=== PATIENT | female | born 1945 | race Caucasian/White ===

== ENCOUNTER 2019-10-10 10:16 | Outpatient (CLI) | payer MEDICARE, SELFPAY ==
[2019-10-10 12:06] LABS: Hemoglobin A1C 5.6 % (<5.7)
[2019-10-10 12:44] LABS: Thyroid Stimulating Hormone 0.446 uIU/mL (0.465-4.680)
== END 2019-10-10 10:17 | disposition home or self-care (01) ==
LOC: ANHLAB 10:17
PROVIDERS: PCP Family Medicine; Visit Provider Internal Medicine Hematology & Oncology
DX: R73.01 Impaired fasting glucose (principal); R53.83 Other fatigue; E03.9 Hypothyroidism, unspecified
CPT/HCPCS: 36415; 83036; 84443

== ENCOUNTER 2019-12-04 01:55 | Outpatient (CLI) | payer MEDICARE, SELFPAY ==
[2019-12-04 18:20] LABS: SARS-CoV-2 RNA PCR Negative
== END 2019-12-04 01:56 | disposition home or self-care (01) ==
LOC: ANHCOVIDDT 01:55
PROVIDERS: PCP Family Medicine; Visit Provider Internal Medicine Gastroenterology
DX: Z01.812 Encounter for preprocedural laboratory examination (principal); Z11.59 Encounter for screening for other viral diseases
CPT/HCPCS: 87635; C9803; U0003

== ENCOUNTER 2019-12-06 02:13 | Day surgery (SDC) | payer MEDICARE, SELFPAY ==
[2019-11-28 14:13] VITALS: BMI 42.5
[2019-12-06 08:28] VITALS: BP 104/62; PULSE 87; RESP 20; TEMP 36.3; O2SAT 97
[2019-12-06] MEDS: LACTATED RINGERS 1,000 ML 150 ML IV CONT (08:46)
--- NOTE | 2019-12-06 09:16 | PM.HPGS ---
History of Present Illness History of Present Illness Consent: Risks, benefits, and alternatives have been discussed and questions answered. Patient agrees to proceed with procedure. Chief complaint: neoplasm Screening Narrative: Marti Leal is a 74 year old female with colon cancer 2015 s/p surgery Review of Systems Constitutional: Constitutional: Denies headache(s) and Denies weakness Eyes: Eyes: Denies blurry vision ENT: Reports Normal hearing present, Denies headache(s) and Denies neck pain Cardiovascular: Cardiovascular: Denies chest pain and Denies dyspnea Respiratory: Respiratory: Denies dyspnea Gastrointestinal: Gastrointestinal: Reports no additional gastrointestinal complaints Genitourinary: Genitourinary: Denies dysuria Musculoskeletal: Musculoskeletal: Denies neck pain Integumentary/Breasts: Skin/Breast: Denies dry skin Neurologic: Reports Normal hearing present, Denies headache(s) and Denies weakness Psychiatric: Psychiatric: Denies anxiety Endocrine: Endocrine: Denies change in body appearance Hematologic/Lymphatic: Hematologic/Lymphatic: Denies easy bleeding Allergic/Immunologic: Allergic/Immunologic: Denies urticaria [facility], LAT[facility] Social History Social History (Updated 11/01/19 @ 14:33 by Codie Joya) Smoking packs per day: 1 Smoking cigarettes per day: 20.0 Years smoked: 20 Smoking pack-years: 20.00 Smoking status: Former smoker Tobacco type: cigarettes Second hand tobacco smoke exposure: No Smoking end date: 04/26/94 Alcohol intake: never Substance use: never Substance use type: does not use Gender identity (if verbalized by the patient): Female Meds Home Medications and Allergies Home Medications Medication Instructions Recorded Confirmed Type anastrozole 1 mg PO DAILY 02/14/19 11/28/19 History calcium carbonate-vitamin D3 1 tablet PO BID 02/14/19 11/28/19 History cholecalciferol (vitamin D3) 1,000 unit PO DAILY 02/14/19 11/28/19 History denosumab 60 mg SUBCUT [id number] 02/14/19 11/28/19 History omega-3 fatty acids 1,000 mg PO DAILY 02/14/19 11/28/19 History topiramate 25 mg tablet 25 mg PO DAILY 03/27/19 11/28/19 History escitalopram oxalate 10 mg tablet 10 mg PO DAILY #90 tablet 03/28/19 11/28/19 Rx ascorbic acid (vitamin C) 500 mg PO DAILY 04/11/19 11/28/19 History furosemide 40 mg tablet See Rx Instructions .ROUTE 11/15/19 11/28/19 Rx .COMPLEX #90 tablet potassium chloride 10 meq PO DAILY 11/28/19 11/28/19 History spironolactone 50 mg PO DAILY 11/28/19 11/28/19 History Allergies Allergy/AdvReac Type Severity Reaction Status Date / Time zinc Allergy Mild skin rash Verified 12/06/19 08:24 Vital Signs Vital Signs - 24 hr 12/06/19 08:28 Temperature 97.4 F L Pulse Rate 87 Respiratory Rate 20 Blood Pressure 104/62 Pulse Oximetry 97 Exam Const: General: comfortable and no acute distress HENMT: General nose exam: Normal nares present Eyes: General: appearance normal, both eyes and all related structures Neck: Neck: no JVD Resp: Auscultation: clear to auscultation bilaterally Cardio: Rate: regular rate Rhythm: regular rhythm GI: Inspection: non-distended GI Palp: Yes Soft to palpation Skin: General skin exam: normal color Neuro: General: gait normal Speech: normal speech Extrem: General: normal to inspection Psych: Mental Status: mental status grossly normal Assessment and Plan Assessment and plan (1) Malignant neoplasm of colon: Code(s): C18.9 - Malignant neoplasm of colon, unspecified Status: Acute Assessment and Plan: she is due to have another colonoscopy (2) S/P colon resection: Code(s): Z90.49 - Acquired absence of other specified parts of digestive tract Status: Acute
--- NOTE | 2019-12-06 09:19 | WPDANESEPPF ---
Anes - Initial Pre Proc Eval Procedure: Operation Date: 12/06/19 09:15 Proposed Procedures p Screening Colonoscopy - Semaj You MD Date/Time: 12/06/19 09:19 Surgeon: Semaj You MD Pre Op Diagnosis: neoplasm Screening Patient Data Age: 74 Gender: F Height: 5 ft 5 in Weight: 116 kg Last Vital Signs Temp 97.4 F L 12/06/19 08:28 Pulse 87 12/06/19 08:28 Resp 20 12/06/19 08:28 BP 104/62 12/06/19 08:28 Pulse Ox 97 12/06/19 08:28 Allergies Allergy/AdvReac Type Severity Reaction Status Date / Time zinc Allergy Mild skin rash Verified 12/06/19 08:24 Home Medications Medication Instructions Recorded Confirmed Type anastrozole 1 mg PO DAILY 02/14/19 11/28/19 History calcium carbonate-vitamin D3 1 tablet PO BID 02/14/19 11/28/19 History cholecalciferol (vitamin D3) 1,000 unit PO DAILY 02/14/19 11/28/19 History denosumab 60 mg SUBCUT [id number] 02/14/19 11/28/19 History omega-3 fatty acids 1,000 mg PO DAILY 02/14/19 11/28/19 History topiramate 25 mg tablet 25 mg PO DAILY 03/27/19 11/28/19 History escitalopram oxalate 10 mg tablet 10 mg PO DAILY #90 tablet 03/28/19 11/28/19 Rx ascorbic acid (vitamin C) 500 mg PO DAILY 04/11/19 11/28/19 History furosemide 40 mg tablet See Rx Instructions .ROUTE 11/15/19 11/28/19 Rx .COMPLEX #90 tablet potassium chloride 10 meq PO DAILY 11/28/19 11/28/19 History spironolactone 50 mg PO DAILY 11/28/19 11/28/19 History Patient hx anesthesia problems: none Family hx anesthesia problems: none PMFSH Past Medical History Medical History (Updated 12/06/19 @ 09:19 by Teofilo Almazan MD) Diastolic dysfunction without heart failure Essential (primary) hypertension History of colon cancer History of uterine cancer Hx of malignant neoplasm of female breast Surgical History Surgical History History of TMJ disorder Status post hysterectomy with oophorectomy Status post Olimpia fundoplication Social History Social History (Updated 11/01/19 @ 14:33 by Codie Joya) Smoking packs per day: 1 Smoking cigarettes per day: 20.0 Years smoked: 20 Smoking pack-years: 20.00 Smoking status: Former smoker Tobacco type: cigarettes Second hand tobacco smoke exposure: No Smoking end date: 04/26/94 Alcohol intake: never Substance use: never Substance use type: does not use Gender identity (if verbalized by the patient): Female Anes - Eval Final PreProcedure Day of Procedure 12/06/19 09:19 Patient weight: morbidly obese Heart: regular rate and rhythm Lungs: clear to auscultation Airway: Mallampati scale class III Neurological: alert and oriented Last oral intake: >/= 8 hours ASA classification: IV Emergent: no Anesthetic plan: proceed Anesthesia type and monitoring: general GIVS and standard monitoring Informed Consent: The patient's anesthetic plan and its attendant risks and benefits were discussed with the patient/family/POA. Questions were solicited and answers provided to the satisfaction of the patient/family/POA.
[2019-12-06 09:48] VITALS: BP 91/44; PULSE 68; RESP 14; O2SAT 98
[2019-12-06 09:58] VITALS: BP 95/45; PULSE 68; RESP 14; O2SAT 98
[2019-12-06 10:08] VITALS: BP 119/58; PULSE 61; RESP 14; O2SAT 98
== END 2019-12-06 10:30 | disposition home or self-care (01) ==
PROVIDERS: PCP Family Medicine; Visit Provider Internal Medicine Gastroenterology
PROC: 0DJD8ZZ Inspection of Lower Intestinal Tract, Via Natural or Artificial Opening Endoscopic (ICD-10-PCS; CPT 45378; principal; 2019-12-06 09:15)
DX: Z12.11 Encounter for screening for malignant neoplasm of colon (principal); D12.2 Benign neoplasm of ascending colon; K63.5 Polyp of colon; K57.30 Diverticulosis of large intestine without perforation or abscess without bleeding; K64.8 Other hemorrhoids; Z85.038 Personal history of other malignant neoplasm of large intestine; Z98.0 Intestinal bypass and anastomosis status; Z90.49 Acquired absence of other specified parts of digestive tract; I11.9 Hypertensive heart disease without heart failure; Z85.3 Personal history of malignant neoplasm of breast; Z79.811 Long term (current) use of aromatase inhibitors; Z87.891 Personal history of nicotine dependence; E66.01 Morbid (severe) obesity due to excess calories; Z68.41 Body mass index [BMI] 40.0-44.9, adult
CPT/HCPCS: 45380; 88305; J2001; J2704; J7120

== ENCOUNTER 2020-04-09 08:45 | Outpatient (CLI) | payer MEDICARE, SELFPAY ==
--- NOTE | ~2020-04-09 | MM_ITS ---
EXAMINATION: MM screening sofi BI w marlo HISTORY: Screening mammogram, history of left breast cancer TECHNIQUE: Craniocaudal and mediolateral oblique 3-D tomosynthesis images were obtained and synthetic 2-D images were generated. CAD analysis was submitted and interpreted. COMPARISON: 04/06/2019, 04/01/2018, 03/30/2017 BREAST PARENCHYMAL COMPOSITION: There are scattered areas of fibroglandular density. FINDINGS: Stable lumpectomy changes are present in the outer left breast. There is no evidence of diego picious mass, calcification, or architectural distortion to suggest malignancy in either breast. Ther e has been no suspicious interval change. IMPRESSION: 1. No mammographic evidence of malignancy. 2. Recommend routine screening mammography in one year. BI-RADS Category 2: Benign finding(s). Reviewed, dictated and finalized at location A. ROPATHIC PHYSICIAN
== END 2020-04-09 08:46 | disposition home or self-care (01) ==
LOC: ANHIMG 08:48
PROVIDERS: PCP Family Medicine; Visit Provider Internal Medicine Hematology & Oncology
DX: Z12.31 Encounter for screening mammogram for malignant neoplasm of breast (principal)
CPT/HCPCS: 77063; 77067

== ENCOUNTER 2020-04-25 10:41 | Outpatient (CLI) | payer MEDICARE, SELFPAY ==
[2020-04-25 11:43] LABS: Hemoglobin A1C 5.4 % (<5.7)
== END 2020-04-25 10:42 | disposition home or self-care (01) ==
PROVIDERS: PCP Family Medicine; Visit Provider Family Medicine
DX: E11.9 Type 2 diabetes mellitus without complications (principal)
CPT/HCPCS: 36415; 83036

== ENCOUNTER → 2020-08-06 09:42 | Outpatient (CLI) | payer MEDICARE, SELFPAY ==
--- NOTE | ~2020-08-06 | XR_ITS ---
EXAMINATION: XR chest 2V DATE: 08/06/2020 10:00 INDICATION: Cough. TECHNIQUE: Frontal and lateral views of the chest were obtained. COMPARISON: Chest single view 03/09/2016 FINDINGS: A calcified right lung nodule is consistent with old granulomatous disease. No pleural effu michael or pneumothorax with the heart size is normal. There is mild chronic anterior wedging of multipl e thoracic vertebral bodies. IMPRESSION: 1. No acute cardiopulmonary disease. Reviewed, dictated and finalized at location A.
== END ==
PROVIDERS: PCP Family Medicine; Visit Provider Physician Assistant
DX: R05 Cough (principal)
CPT/HCPCS: 71046

== ENCOUNTER 2020-10-25 09:47 | Outpatient (CLI) | payer MEDICARE, SELFPAY ==
[2020-10-25 10:09] LABS: Add Urine Microscopic? YES
[2020-10-25 10:10] LABS: Color Urine Yellow (Yellow)
[2020-10-25 10:11] LABS: Appearance Urine Cloudy (Clear); Glucose Urine UA Negative (Negative); Protein Urine 1+ mg/dL (Negative)
[2020-10-25 10:12] LABS: Bilirubin Urine Negative (Negative); Blood Urine 2+ (Negative); Ketones Urine Negative (Negative); Leukocyte Esterase Ur 2+ LEU/UL (NEGATIVE); Nitrate Urine Negative (Negative); Urobilinogen Urine 0.2 mg/dL (<2.0)
[2020-10-25 10:43] LABS: RBC Urine 21-50 /hpf (0-2)
[2020-10-25 10:44] LABS: Squamous Epithelial Cell Urine Few /hpf (Few)
[2020-10-25 10:46] LABS: Bacteria Urine Trace /hpf
[2020-10-25 11:50] LABS: Cholesterol 180 mg/dL (0-200); HDL Direct 65 mg/dL; Triglycerides 119 mg/dL (<150)
[2020-10-25 11:55] LABS: Hemoglobin A1C 5.6 % (<5.7)
[2020-10-25 12:00] LABS: LDL Cholesterol Direct 77 mg/dL
== END 2020-10-25 09:48 | disposition home or self-care (01) ==
PROVIDERS: PCP Family Medicine; Visit Provider Family Medicine
DX: R53.83 Other fatigue (principal); R73.01 Impaired fasting glucose; I10 Essential (primary) hypertension
CPT/HCPCS: 36415; 80061; 81001; 83036; 84443

== ENCOUNTER 2021-04-14 07:11 | Outpatient (CLI) | payer MEDICARE, SELFPAY ==
--- NOTE | ~2021-04-14 | MM_ITS ---
EXAMINATION: MM screening sofi BI w marlo HISTORY: Screening mammogram, family history of breast cancer in her sister, history of left breast c ancer. TECHNIQUE: Craniocaudal and mediolateral oblique 3-D tomosynthesis images were obtained and synthetic 2-D images were generated. CAD analysis was submitted and interpreted. COMPARISON: 04/09/2020, 04/06/2019, 04/01/2018 BREAST PARENCHYMAL COMPOSITION: There are scattered areas of fibroglandular density. FINDINGS: Scattered benign-appearing calcifications are present. There is no evidence of suspicious m ass, calcification, or architectural distortion to suggest malignancy in either breast. There has bee n no suspicious interval change. IMPRESSION: 1. No mammographic evidence of malignancy. 2. Recommend routine screening mammography in one year. BI-RADS Category 2: Benign finding(s). Reviewed, dictated and finalized at location A. ER CRUSHER OPERATOR
[2021-04-14 15:24] LABS: Hemoglobin A1C 5.5 % (<5.7)
== END 2021-04-14 07:12 | disposition home or self-care (01) ==
PROVIDERS: PCP Family Medicine; Visit Provider Internal Medicine Hematology & Oncology
DX: Z12.31 Encounter for screening mammogram for malignant neoplasm of breast (principal); R73.01 Impaired fasting glucose; I10 Essential (primary) hypertension
CPT/HCPCS: 36415; 77063; 77067; 83036

== ENCOUNTER 2021-11-18 09:27 | Outpatient (CLI) | payer MEDICARE, SELFPAY ==
[2021-11-18 10:07] LABS: Cholesterol 162 mg/dL (0-200); HDL Direct 49 mg/dL; Triglycerides 100 mg/dL (<150)
[2021-11-18 10:18] LABS: LDL Cholesterol Direct 67 mg/dL
[2021-11-18 10:38] LABS: Thyroid Stimulating Hormone 0.484 uIU/mL (0.465-4.680)
[2021-11-18 10:44] LABS: Hemoglobin A1C 5.4 % (<5.7)
== END 2021-11-18 09:28 | disposition home or self-care (01) ==
LOC: ANHLAB 09:28
PROVIDERS: PCP Family Medicine; Visit Provider Family Medicine
DX: R53.83 Other fatigue (principal); R73.01 Impaired fasting glucose; E78.2 Mixed hyperlipidemia
CPT/HCPCS: 36415; 80061; 83036; 84443

== ENCOUNTER 2022-05-11 07:14 | Outpatient (CLI) | payer MEDICARE, SELFPAY ==
--- NOTE | ~2022-05-11 | MM_ITS ---
EXAMINATION: MM screening sofi BI w marlo HISTORY: Screening mammogram, history of left breast cancer TECHNIQUE: Craniocaudal and mediolateral oblique 3-D tomosynthesis images were obtained and synthetic 2-D images were generated. CAD analysis was submitted and interpreted. COMPARISON: 04/14/2021, 04/09/2020, 04/06/2019 BREAST PARENCHYMAL COMPOSITION: There are scattered areas of fibroglandular density. FINDINGS: There are stable lumpectomy changes in the left breast. No suspicious mass, calcification, or architectural distortion are identified in either breast to suggest malignancy. There has been no suspicious interval change. IMPRESSION: 1. No mammographic evidence of malignancy. 2. Recommend routine screening mammography in one year. BI-RADS Category 2: Benign finding(s). Reviewed, dictated and finalized at location A. CONTROLLER
== END 2022-05-11 07:15 | disposition home or self-care (01) ==
LOC: ANHIMG 07:15
PROVIDERS: PCP Family Medicine; Visit Provider Internal Medicine Hematology & Oncology
DX: Z12.31 Encounter for screening mammogram for malignant neoplasm of breast (principal)
CPT/HCPCS: 77063; 77067

== ENCOUNTER 2022-11-10 08:26 | Outpatient (CLI) | payer MEDICARE, SELFPAY ==
[2022-11-10 08:47] LABS: Basophils Percent Auto 0.4 % (0.2-1.2); Eosinophils Absolute Auto 0.2 K/mm3 (0-0.3); Hematocrit 41.7 % (37.0-47.0); Hemoglobin 13.7 g/dL (12.0-15.0); Immature Granulocyte Absolute 0.03 K/mm3 (0.00-0.031); Immature Granulocyte Percent A 0.4 % (0-0.5); Lymphocytes Absolute Auto 1.59 K/mm3 (0.9-3.2); Lymphocytes Percent Auto 23.7 % (18.3-44.2); Mean Corpuscular HGB Conc 32.9 g/dl (32-36); Mean Corpuscular Hemoglobin 30.1 pg (26-34); Mean Corpuscular Volume 91.6 fl (80-100); Mean Platelet Volume 9.4 fl (7.4-10.4); Monocytes Absolute Auto 0.6 K/mm3 (0.1-0.6); Monocytes Percent Auto 9.5 % (2.6-8.5); Neutrophils Absolute Auto 4.2 K/mm3 (1.3-6.7); Platelet Count Result 210 k/mm3 (150-375); Red Blood Count 4.55 M/mm3 (4.2-5.4); Red Cell Distribution Width 13.3 % (11.5-14.5); White Blood Count 6.7 K/mm3 (4.5-10.0)
[2022-11-10 11:04] LABS: Appearance Urine Clear (Clear); Bacteria Urine None Seen /hpf; Bilirubin Urine Negative (Negative); Blood Urine Trace (Negative); Calcium Oxalate Crystals Urine Present /hpf; Color Urine Yellow (Yellow); Glucose Urine UA Negative (Negative); Hyaline Casts Urine Present /lpf; Ketones Urine Negative (Negative); Leukocyte Esterase Ur 1+ LEU/UL (NEGATIVE); Mucus Urine Present /lpf; Need Manual Microscopic Reviewed; Nitrate Urine Negative (Negative); Non Pathogenic Casts 0-2; Protein Urine Negative (Negative); Specific Grav Ur 1.022 (1.001-1.035); Squamous Epithelial Cell Urine None seen /hpf (Few); Urobilinogen Urine 0.2 mg/dL (<2.0); pH Urine 5.5 (5.0-9.0)
[2022-11-10 11:13] LABS: Add Urine Microscopic? YES
[2022-11-10 11:39] LABS: Hemoglobin A1C 5.6 % (<5.7)
[2022-11-10 12:49] LABS: Alanine Aminotransferase 23 U/L (6-35); Albumin Level 3.9 g/dL (3.5-5.1); Alkaline Phosphatase 64 U/L (38-126); Anion Gap 4 mmol/L (8-16); Aspartate Amino Transferase 31 U/L (14-36); Bilirubin,Total 0.5 mg/dL (0.2-1.3); Blood Urea Nitrogen 13 mg/dL (7-17); Calcium 9.4 mg/dL (8.4-10.2); Carbon Dioxide 35 mmol/L (22-30); Chloride 100 mmol/L (98-107); Cholesterol 156 mg/dL (0-200); Estimated Glomerular Filt Rate > 60; Glucose 97 mg/dL (65-110); HDL Direct 48 mg/dL; Sodium 139 mmol/L (137-145); Triglycerides 108 mg/dL (<150)
[2022-11-10 13:01] LABS: LDL Cholesterol Direct 71 mg/dL
[2022-11-10 13:19] LABS: Thyroid Stimulating Hormone 0.558 uIU/mL (0.465-4.680)
[2022-11-16 16:42] LABS: CA 15-3 11 U/mL (<32)
== END 2022-11-10 08:27 | disposition home or self-care (01) ==
LOC: ANHLAB 08:27
PROVIDERS: PCP Family Medicine; Visit Provider Internal Medicine Hematology & Oncology
DX: E78.5 Hyperlipidemia, unspecified (principal); I10 Essential (primary) hypertension; R53.83 Other fatigue; C50.912 Malignant neoplasm of unspecified site of left female breast; Z17.0 Estrogen receptor positive status [ER+]
CPT/HCPCS: 36415; 80053; 80061; 81001; 83036; 84443; 85025; 86300

== ENCOUNTER 2023-01-19 02:47 | Day surgery (SDC) | payer MEDICARE, SELFPAY ==
[2023-01-06 10:53] VITALS: BMI 43.2
[2023-01-19 06:11] VITALS: BP 135/72; PULSE 76; RESP 18; TEMP 36.3; O2SAT 99; BMI 43.2
[2023-01-19] MEDS: LACTATED RINGERS 1,000 ML 150 ML IV CONT (06:32)
--- NOTE | 2023-01-19 07:21 | WPDANESEPPF ---
Anes - Initial Pre Proc Eval Procedure: Operation Date: 01/19/23 07:30 Proposed Procedures p Colonoscopy - Semaj You MD Date/Time: 01/19/23 07:21 Surgeon: Semaj You MD Pre Op Diagnosis: hx colon ca Patient Data Age: 77 Gender: F Height: 1.65 m Weight: 117.8 kg Last Vital Signs Temp 97.3 F L 01/19/23 06:11 Pulse 76 01/19/23 06:11 Resp 18 01/19/23 06:11 BP 135/72 01/19/23 06:11 Pulse Ox 99 01/19/23 06:11 O2 Del Method Room Air 01/19/23 06:11 Allergies Allergy/AdvReac Type Severity Reaction Status Date / Time zinc Allergy Mild skin rash Verified 01/06/23 10:53 Home Medications Medication Instructions Recorded Confirmed Type anastrozole 1 mg tablet 1 mg PO DAILY 02/14/19 01/06/23 History calcium carbonate 600 mg-vitamin 1 tablet PO BID 02/14/19 01/06/23 History D3 20 mcg (800 unit) chewable tablet cholecalciferol (vitamin D3) 25 1,000 unit PO DAILY 02/14/19 01/06/23 History mcg (1,000 unit) tablet denosumab 60 mg/mL subcutaneous 60 mg subcut [id number] 02/14/19 01/06/23 History syringe omega-3 fatty acids 1,000 mg 1,000 mg PO DAILY 02/14/19 01/06/23 History capsule ascorbic acid (vitamin C) 500 mg 500 mg PO DAILY 04/11/19 01/06/23 History chewable tablet escitalopram oxalate 10 mg tablet 10 mg PO DAILY #90 tabs 12/03/21 01/06/23 Rx (Lexapro) spironolactone 50 mg tablet 50 mg PO QAM #90 tabs 08/12/22 01/06/23 Rx potassium chloride 10 mEq 10 meq PO DAILY #90 caps 12/03/22 01/06/23 Rx capsule,extended release benzonatate 100 mg capsule 100 mg PO TID PRN Cough 01/06/23 01/06/23 History furosemide 40 mg tablet 40 mg PO DAILY 01/06/23 01/06/23 History Patient hx anesthesia problems: none Family hx anesthesia problems: none Results Review: All pre-operative results and documents have been reviewed as part of the pre-operative evaluation. [facility] Past Medical History Medical History Diastolic dysfunction without heart failure Essential (primary) hypertension History of colon cancer History of uterine cancer Hx of malignant neoplasm of female breast Surgical History Surgical History History of TMJ disorder Status post hysterectomy with oophorectomy Status post Olimpia fundoplication Family History Family History Mother Family history of osteoarthritis Father Acute myocardial infarction Family history of cardiovascular disease Grandparent Family history of malignant neoplasm of uterus Sibling Family history of malignant neoplasm of thyroid Diabetes mellitus Family history of primary malignant neoplasm of liver Family history of malignant neoplasm of bone Family history of malignant neoplasm of breast in first degree relative Other Family history of Parkinson's disease Family history of arthritis Family history of chronic obstructive pulmonary disease Family history of malignant neoplasm Social History Social History Smoking packs per day: 1 Smoking cigarettes per day: 20.0 Years smoked: 10 Smoking pack-years: 10.00 Smoking status: Former smoker Tobacco type: cigarettes Second hand tobacco smoke exposure: No Smoking end date: 04/26/94 Alcohol intake: never Substance use: never Substance use type: does not use Living arrangements: with family Occupation/Education: retired Gender identity (if verbalized by the patient): Female Spiritual care concerns: No Anes - Eval Final PreProcedure Day of Procedure 01/19/23 07:21 Patient weight: morbidly obese Heart: regular rate and rhythm Lungs: clear to auscultation Airway: Mallampati scale class II Neurological: alert and oriented Last oral intake: >/= 8 hours ASA classification: III Emergent:
--- NOTE | 2023-01-19 07:22 | PM.HPGS ---
History of Present Illness History of Present Illness Consent: Risks, benefits, and alternatives have been discussed and questions answered. Patient agrees to proceed with procedure. Chief complaint: hx colon ca Narrative: Marti Leal is a 77 year old female with colon cancer 2015 s/p Rt hemicolectomy, last colonoscopy 2019 with polyps Review of Systems Constitutional: Constitutional: Denies headache(s) and Denies weakness Eyes: Eyes: Denies blurry vision ENT: Reports Normal hearing present, Denies headache(s) and Denies neck pain Cardiovascular: Cardiovascular: Denies chest pain and Denies dyspnea Respiratory: Respiratory: Denies dyspnea Gastrointestinal: Gastrointestinal: Reports no additional gastrointestinal complaints Genitourinary: Genitourinary: Denies dysuria Musculoskeletal: Musculoskeletal: Denies neck pain Integumentary/Breasts: Skin/Breast: Denies dry skin Neurologic: Reports Normal hearing present, Denies headache(s) and Denies weakness Psychiatric: Psychiatric: Denies anxiety Endocrine: Endocrine: Denies change in body appearance Hematologic/Lymphatic: Hematologic/Lymphatic: Denies easy bleeding Allergic/Immunologic: Allergic/Immunologic: Denies urticaria PMFSH Past Medical History Medical History (Updated 01/19/23 @ 07:23 by Semaj You MD) Diastolic dysfunction without heart failure Essential (primary) hypertension History of colon cancer History of uterine cancer Hx of malignant neoplasm of female breast Surgical History Surgical History (Updated 11/17/22 @ 08:58 by Evita Calixto MD) History of TMJ disorder Status post hysterectomy with oophorectomy Status post Olimpia fundoplication Family History Family History Mother Family history of osteoarthritis Father Acute myocardial infarction Family history of cardiovascular disease Grandparent Family history of malignant neoplasm of uterus Sibling Family history of malignant neoplasm of thyroid Diabetes mellitus Family history of primary malignant neoplasm of liver Family history of malignant neoplasm of bone Family history of malignant neoplasm of breast in first degree relative Other Family history of Parkinson's disease Family history of arthritis Family history of chronic obstructive pulmonary disease Family history of malignant neoplasm Social History Social History Smoking packs per day: 1 Smoking cigarettes per day: 20.0 Years smoked: 10 Smoking pack-years: 10.00 Smoking status: Former smoker Tobacco type: cigarettes Second hand tobacco smoke exposure: No Smoking end date: 04/26/94 Alcohol intake: never Substance use: never Substance use type: does not use Living arrangements: with family Occupation/Education: retired Gender identity (if verbalized by the patient): Female Spiritual care concerns: No Meds Home Medications and Allergies Home Medications Medication Instructions Recorded Confirmed Type anastrozole 1 mg tablet 1 mg PO DAILY 02/14/19 01/06/23 History calcium carbonate 600 mg-vitamin 1 tablet PO BID 02/14/19 01/06/23 History D3 20 mcg (800 unit) chewable tablet cholecalciferol (vitamin D3) 25 1,000 unit PO DAILY 02/14/19 01/06/23 History mcg (1,000 unit) tablet denosumab 60 mg/mL subcutaneous 60 mg subcut [id number] 02/14/19 01/06/23 History syringe omega-3 fatty acids 1,000 mg 1,000 mg PO DAILY 02/14/19 01/06/23 History capsule ascorbic acid (vitamin C) 500 mg 500 mg PO DAILY 04/11/19 01/06/23 History chewable tablet escitalopram oxalate 10 mg tablet 10 mg PO DAILY #90 tabs 12/03/21 01/06/23 Rx (Lexapro) spironolactone 50 mg tablet 50 mg PO QAM #90 tabs 08/12/22 01/06/23 Rx potassium chloride 10 mEq 10 meq PO DAILY #90 caps 12/03/22 01/06/23 Rx capsule,extended release benzonatate 1
[2023-01-19 07:44] VITALS: BP 118/51; PULSE 74; RESP 22; O2SAT 100
[2023-01-19 07:54] VITALS: BP 126/64; PULSE 66; RESP 16; O2SAT 99
[2023-01-19 08:04] VITALS: BP 129/59; PULSE 63; RESP 16; O2SAT 100
== END 2023-01-19 08:10 | disposition home or self-care (01) ==
PROVIDERS: PCP Family Medicine; Visit Provider Internal Medicine Gastroenterology
PROC: 0DJD8ZZ Inspection of Lower Intestinal Tract, Via Natural or Artificial Opening Endoscopic (ICD-10-PCS; CPT 45378; principal; 2023-01-19 07:30)
DX: Z12.11 Encounter for screening for malignant neoplasm of colon (principal); D12.4 Benign neoplasm of descending colon; K62.1 Rectal polyp; K64.8 Other hemorrhoids; K57.30 Diverticulosis of large intestine without perforation or abscess without bleeding; Z98.0 Intestinal bypass and anastomosis status; Z90.49 Acquired absence of other specified parts of digestive tract; Z85.038 Personal history of other malignant neoplasm of large intestine; I11.9 Hypertensive heart disease without heart failure; Z79.811 Long term (current) use of aromatase inhibitors; Z85.3 Personal history of malignant neoplasm of breast; Z85.42 Personal history of malignant neoplasm of other parts of uterus; Z87.891 Personal history of nicotine dependence; E66.01 Morbid (severe) obesity due to excess calories; Z68.41 Body mass index [BMI] 40.0-44.9, adult
CPT/HCPCS: 45385; 88305; J2704; J7120

== ENCOUNTER 2023-05-11 08:27 | Outpatient (CLI) | payer MEDICARE, SELFPAY ==
--- NOTE | ~2023-05-11 | DEXA_ITS ---
Bone Density Report Name: CAITY LEAHY Age: 77 Sex: Female Ethnicity: White Date of : 1945 Indication: postmenopausal; screening for osteoporosis; height loss; inflammatory bowel disease; cancer; hysterectomy; Referring Provider: ALEXIS MATTHEWS Study: Bone densitometry was performed. Exam Date: May 11, 2023 Accession number: [id number] Bone Density: Region BMD T-score Z-score Classification AP Spine(L1-L4) 1.469 3.8 6.3 Normal Femoral Neck (Left) 0.814 -0.3 1.8 Normal Total Hip (Left) 1.008 0.5 2.4 Normal Femoral Neck (Right) 0.812 -0.3 1.8 Normal Total Hip (Right) 0.980 0.3 2.2 Normal Total Hip Mean 0.994 0.4 2.3 Normal World Health Organization criteria for BMD impression classify patients as: Normal (T-score at or above -1.0), Osteopenia (T-score between -1.0 and -2.5), or Osteoporosis (T-score at or below -2.5). 10-year Fracture Risk: FRAX not reported because: All T-scores for Spine Total, Hip Total, Femoral Neck at or above -1.0 Previous Exams: Region Exam Age BMD T-score BMD Change BMD Change Date g/cm2 vs Baseline vs Previous AP Spine (L1-L4) 05/11/2023 77 1.469 3.8 0.112 (8.3%)* 0.112 (8.3%)* 03/30/2017 71 1.356 2.8 Total Hip(Left) 05/11/2023 77 1.008 0.5 0.050 (5.2%)* 0.050 (5.2%)* 03/30/2017 71 0.958 0.1 Total Hip(Right) 05/11/2023 77 0.980 0.3 0.054 (5.9%)# 0.054 (5.9%)# 03/30/2017 71 0.926 -0.1 *Denotes significance at 95% confidence level, LSC for AP Spine = 0.022 g/cm2, LSC for Total Hip = 0.027 g/cm2 # Denotes dissimilar scan types or analysis methods Clinical Information Provided by Patient: Has used the following medications: Vitamin D, Calcium Has the following medical conditions: Cancer, Inflammatory bowel diseases, Hysterectomy Patient maximum height was 67 Menopause Age: 47 No regular weight bearing exercise Does not regularly consume dairy products Drinks caffeinated beverages Onset of menses at age 14 Number of children 2 Impression: The patient has normal bone mass. No significant bone loss was observed. Discussion: BONE DENSITY IS ABOVE THE MINIMUM DESIRABLE LEVEL AT ALL SKELETAL SITES TESTED. This patient?s bone mineral density is above the minimum desirable level (T-score -1.0 or better) at all sites measured. The patient should follow a healthful lifestyle (good nutrition with adequate calcium and vitamin D, and appropriate weight-bearing exerci
--- NOTE | ~2023-05-11 | MM_ITS ---
EXAMINATION: MM screening sofi BI w marlo HISTORY: Screening TECHNIQUE: Craniocaudal and mediolateral oblique 3-D tomosynthesis images were obtained and synthetic 2-D images were generated. CAD analysis was submitted and interpreted. COMPARISON: Comparison to multiple prior studies sequentially, with oldest reviewed study dated 08/2016. BREAST PARENCHYMAL COMPOSITION: Breast composed of scattered areas of fibroglandular density FINDINGS: There is possible architectural distortion located in the subareolar location of the right breast. There is persistent asymmetry with coarse calcifications in the mid lateral aspect of the lef t breast, unchanged, likely fat necrosis from prior lumpectomy. No new masses, architectural distorti on or suspicious calcifications in the left breast to suggest malignancy. IMPRESSION: 1. Possible new area of architectural distortion subareolar location of the right breast. 2. Additional mammographic views and possible breast ultrasound are recommended. BI-RADS Category 0: Incomplete: Needs additional imaging evaluation. Reviewed, dictated and finalized at location A. GREENSKEEPER IMPRESSION: 1. Possible new area of architectural distortion subareolar location of the rig ht breast. 2. Additional mammographic views and possible breast ultrasound are recommended . BI-RADS Category 0: Incomplete: Needs additional imaging evaluation.
== END 2023-05-11 08:28 | disposition home or self-care (01) ==
PROVIDERS: PCP Family Medicine; Visit Provider Internal Medicine Hematology & Oncology
DX: Z12.31 Encounter for screening mammogram for malignant neoplasm of breast (principal); M81.0 Age-related osteoporosis without current pathological fracture; R92.8 Other abnormal and inconclusive findings on diagnostic imaging of breast
CPT/HCPCS: 77063; 77067; 77080

== ENCOUNTER 2023-05-11 09:26 | Outpatient (CLI) | payer MEDICARE, SELFPAY ==
[2023-05-11 09:47] LABS: Basophils Percent Auto 0.5 % (0.2-1.2); Eosinophils Absolute Auto 0.2 K/mm3 (0-0.3); Eosinophils Percent Auto 2.9 % (0-4.4); Hematocrit 39.9 % (37.0-47.0); Hemoglobin 13.1 g/dL (12.0-15.0); Immature Granulocyte Absolute 0.03 K/mm3 (0.00-0.031); Immature Granulocyte Percent A 0.5 % (0-0.5); Lymphocytes Absolute Auto 1.76 K/mm3 (0.9-3.2); Lymphocytes Percent Auto 26.7 % (18.3-44.2); Mean Corpuscular HGB Conc 32.8 g/dl (32-36); Mean Corpuscular Hemoglobin 30.1 pg (26-34); Mean Corpuscular Volume 91.7 fl (80-100); Mean Platelet Volume 9.3 fl (7.4-10.4); Monocytes Absolute Auto 0.7 K/mm3 (0.1-0.6); Neutrophils Absolute Auto 3.9 K/mm3 (1.3-6.7); Neutrophils Percent Auto 59.4 % (45.5-73.1); Platelet Count Result 213 k/mm3 (150-375); Red Blood Count 4.35 M/mm3 (4.2-5.4); Red Cell Distribution Width 13.3 % (11.5-14.5); White Blood Count 6.6 K/mm3 (4.5-10.0)
[2023-05-11 10:29] LABS: Alanine Aminotransferase 20 U/L (6-35); Albumin Level 3.8 g/dL (3.5-5.1); Alkaline Phosphatase 70 U/L (38-126); Anion Gap 5 mmol/L (8-16); Aspartate Amino Transferase 27 U/L (14-36); Bilirubin,Total 0.5 mg/dL (0.2-1.3); Blood Urea Nitrogen 15 mg/dL (7-17); Calcium 9.2 mg/dL (8.4-10.2); Carbon Dioxide 32 mmol/L (22-30); Chloride 101 mmol/L (98-107); Estimated Glomerular Filt Rate > 60; Glucose 86 mg/dL (65-110); Potassium 3.8 mmol/L (3.4-5.0); Sodium 138 mmol/L (137-145)
[2023-05-13 21:03] LABS: CA 15-3 12 U/mL (<32)
== END 2023-05-11 09:27 | disposition home or self-care (01) ==
LOC: ANHLAB 09:28
PROVIDERS: Internal Medicine; PCP Family Medicine; Visit Provider Internal Medicine Hematology & Oncology
DX: C50.912 Malignant neoplasm of unspecified site of left female breast (principal); Z17.0 Estrogen receptor positive status [ER+]
CPT/HCPCS: 36415; 80053; 85025; 86300

== ENCOUNTER 2023-06-03 10:35 | Outpatient (CLI) | payer MEDICARE, SELFPAY ==
--- NOTE | ~2023-06-03 | MMUS_ITS ---
EXAMINATION: MM diagnostic sofi RT w marlo, US breast RT complete HISTORY: Possible new area of architectural distortion reported in the subareolar right breast on 04/26 screening mammogram TECHNIQUE: Additional 3-D tomosynthesis images of the right breast were performed and synthetic 2-D i mages were generated. CAD analysis was submitted and interpreted. High resolution complete right [facility] [facility] ultrasound examination coronal 4 quadrants and subareolar area was performed. COMPARISON: 05/11/2023, 05/11/2022, 04/14/2021 bilateral screening mammogram examinations FINDINGS: MAMMOGRAPHIC FINDINGS: No reproducible mass on orthogonal views is evident. The focal area of asymmetry in the central right breast approximately 3.5 cm deep to the nipple on craniocaudal view is consistent with composite sha dowing of overlapping fibroglandular stroma, without evidence of any suspicious mass in MLO or ML inj ections. ULTRASOUND: No suspicious mass or shadowing is detected. No other significant sonographic abnormality of the righ t breast. IMPRESSION: 1. No mammographic or sonographic evidence of malignancy right breast 2. Routine annual mammographic screening is recommended BI-RADS Category 1: Negative Reviewed, dictated and finalized at location A. ENSATION SPECIALIST IMPRESSION: 1. No mammographic or sonographic evidence of malignancy right breast 2. Routine annual mammographic screening is recommended BI-RADS Category 1: Negative
== END 2023-06-03 10:36 | disposition home or self-care (01) ==
PROVIDERS: PCP Family Medicine; Visit Provider Internal Medicine Hematology & Oncology
DX: R92.8 Other abnormal and inconclusive findings on diagnostic imaging of breast (principal)
CPT/HCPCS: 76641; 77061; 77065; G0279

== ENCOUNTER 2023-08-31 08:35 | Outpatient (CLI) | payer MEDICARE, SELFPAY ==
[2023-08-31 09:29] LABS: Alanine Aminotransferase 19 U/L (6-35); Aspartate Amino Transferase 40 U/L (14-36)
== END 2023-08-31 08:36 | disposition home or self-care (01) ==
LOC: ANHLAB 08:38
PROVIDERS: PCP Family Medicine; Visit Provider Podiatrist Foot & Ankle Surgery
DX: B35.1 Tinea unguium (principal)
CPT/HCPCS: 36415; 84450; 84460

== ENCOUNTER 2024-06-06 08:56 | Outpatient (CLI) | payer MEDICARE, SELFPAY ==
--- OUTSIDE RECORDS SUMMARY | 2024-06-06 09:38 | XMS_ITS | Continuity of Care Document ---
Author Organization [facility] Address [address] [place] [address] [address] [place] [address] Phone Care Team Providers Care Virtual Assistant Name Role Phone Foreman OD, Kishan Unavailable Unavailable Procedures Procedure Date Contact Lens/es Other Type [facility] Medical Eye Exam & Treatment Refraction CL Replacement - Vistakon Disp W/BW Soft UmbaBox CL Replacement - Vistakon Disp W/BW Soft [facility] Office/outpatient Visit, Est Eye Exam Established Pt Eye Exam & Treatment Refraction Office/outpatient Visit, Est CL Replacement - Vistakon Disp W/BW Soft [facility] Eye Exam & Treatment Refraction CL Replacement - Vistakon Disp W/BW Soft [facility] Office/outpatient Visit, Est Office/outpatient Visit, Est CL Replacement - Vistakon Disp W/BW Soft Sales Tax Advance Directives Directive Yes / No Effective Date File Name No Information Encounters Encounter Description Practice Location Reason(s) For Visit Diagnoses Date Provider Providers Copied on Encounter [facility], [address] [place] [address] [address], [place], [place], [id number], [place] tel:[phone] [facility] No Information Dec-0 2-200 9 Foreman OD Kishan. [address] , [address], [place], [address], [place]. tel:[phone] [facility], [address] [place] [address] [address], [place], [place], [id number], [place] tel:[phone] [facility] No Information Nov-1 8-200 9 Foreman OD Kishan. [address] , [address], [place], [address], [place]. tel:[phone] [facility], [address] [place] [address] [address], [place], [place], [id number], [place] tel:[phone] [facility] [place] No Information Aug-1 8-200 9 Foreman OD Kishan. [address] , [address], [place], [place], [facility], [place]. tel:[phone] Office/outpat ient Visit, Est [facility], [address] [place] [address] [address], [place], [place], [id number], [place] tel:[phone] [facility] [place] No Information Dec-3 1-200 8 Foreman OD Kishan. [address] , [address], [place], [place], [facility], [place]. tel:[phone] [facility], [address] [place] [address] [address], [place], [place], [id number], [place] tel:[phone] [facility] [place] No Information Dec-2 3-200 8 Krishnasamy Raji. [facility] [address], [place], [place], [facility], [place]. tel:[phone] [facility], [address] [place] [address] [address], [place], [place], [id number], [place] tel:[phone] [facility] No Information Nov-1 2-200 8 Foreman OD Kishan. [address] , [address], [place], [facility], . [phone] Office/outpat ient Visit, Est [facility], [address] [place] [address] [address], [place], [place], [id number], [place] tel:[phone] [facility] No Information Nov-0 6-200 8 Baker Katarzyna. [address] , [address], [place], [facility], . [phone] [facility], [address] [place] [address] [address], [place], [place], [id number], [place] tel:[phone] [facility] [place] No Information 1 5-200 8 Foreman OD Kishan. [address] , [address], [place], [facility], . tel:[phone] [facility], [address] [place] [address] [address], [place], [place], [id number], [place] tel:[phone] [facility] No Information Feb-2 9-200 7 Baker Katarzyna. [facility] [address] , [address], [place], [facility], [place]. tel:[phone] [facility], [address] [place] [address] [address], [place], [place], [id number], [place] tel:[phone] [facility] No Information Nov-0 3-200 7 Foreman OD Kishan. [address] , [address], [place], [facility], [place]. [phone] Office/outpat ient Visit, Est [facility], [address] [place] [address] [address], [place], [place], [id number], [place] [phone] [facility] No Information Oct-2 4-200 7 Dakota Mccain. [address], [place], [place], [address], [place]. tel:[phone] Office/outpat ient Visit, Est [facility], [address], [place], [place], [id number], [place] tel:[phone] [facility] No Information 9-200 7 Wankum Adán. [address], [address], [place], [place], [id number], [place]. tel:[phone] [facility], [address], [place], [place], [address], [place] tel:[phone] [facility] No Information 0-200 7 Foreman OD Kishan. [address], [address], [place], [address], [place]. tel:[phone] Family History Family Member Type Diagnosis Age At Onset No Information Payers Payer name Insurance type Covered constitution party ID Eleanor robbins(s) [employer] Plan [id number] Social History Type Description Quantity Date Captured Comments Sex Female Smoking Status No Information Chief Complaint And Reason For Visit No Information Reason For Referral Reason For Referral No Information History Of Present Illness Encounter Date Complaint History Of Prese nt Illness No Information Functional Status Date Functional Assessmen t No Information Instructions Date Instruction Additional Infor mation No Information Assessments Type Assessment Date No Information Patient Care Teams Name Effective Dates (start - stop) Status Members No Information
--- OUTSIDE RECORDS SUMMARY | 2024-06-06 09:38 | XMS_ITS | Clinical Summary ---
Author Organization [facility] Address [address] [place] [address] Care Team Providers Care Mortgage Specialist Name Role Phone Emerson Stinson MD Primary Care Provider [phone] Allergies Active Allergy Reactions Criticality Noted Date Comments Zinc Rash Medium 10/25/2014 Medications aspirin (ECOTRIN EC) 81 mg Tablet, Delayed Release (E.C.) Take 81 mg by mouth daily. Active fluticasone (FLONASE) 50 mcg/spray [place], Suspension Administer 2 Sprays in each nostril daily. Active folic acid (FOLVITE) 0.8 mg Tablet Take 800 mcg by mouth daily. Active cholecalciferol, vitamin D3, 1,000 unit Take 1,000 Units by mouth daily. Active calcium as carbonate (CALTRATE) 1,500 mg (600 mg elemental) Tablet Take 600 mg by mouth 2 times daily. Active furosemide (LASIX) 40 mg tablet Take 40 mg by mouth daily. Active omega-3 fatty acids-fish oil 300-1,000 mg Capsule Take 1 Capsule by mouth daily. Active ASCORBIC ACID/VITAMIN E/BIOTIN (HAIR, SKIN, NAILS WITH BIOTIN ORAL) Take 50 mg by mouth daily. Active gabapentin (NEURONTIN) 300 mg capsule TK 2 CS PO TID 1 8 Active escitalopram oxalate (LEXAPRO) 10 mg tablet Take 10 mg by mouth. Active ascorbic acid (VITAMIN C) 500 mg Tablet, Chewable Take 500 mg by mouth. Active topiramate (TOPAMAX) 25 mg tabletIndication s:Malignant neoplasm of left breast in female, estrogen receptor positive, unspecified site of breast (CMS/HCC) Take 1 Tablet (25 mg) by mouth 2 times daily. 60 Tablet 5 0 Active anastrozole (ARIMIDEX) 1 mg tabletIndication s:Malignant neoplasm of left breast in female, estrogen receptor positive, unspecified site of breast (CMS/HCC) TAKE 1 TABLET BY MOUTH DAILY 90 Tablet 3 3 Active potassium chloride (MICRO-K EXTENCAPS) 10 mEq Extended Release capsuleIndicatio ns:Personal history of malignant neoplasm of uterus,Hypokalem ia TAKE 1 CAPSULE DAILY 30 Capsule 3 4 Active Active Problems Problem Noted Date Diagnosed Date Malignant neoplasm of left b reast in female, estrogen receptor positive 08/04/2018 Personal history of malignant neoplasm of uterus 08/19/2017 Personal history of colon cancer 08/19/2017 Family history of uterine cancer 08/19/2017 Family history of breast cancer 08/19/2017 Family history of malignant neoplasm of colon in first degree relative diagnosed when younger than 60 years of age 0408/19/2017 Family history of testicular cancer 08/19/2017 Genetic testing 08/19/2017 Overview (09/07/2017): NEGATIVE. The patient underwent the [employer] my risk genetic testing for hereditary cancer syndromes due to her personal history of uterine cancer, colon cancer, and breast cancer as well as a family history of breast cancer, uterine cancer, and colon cancer. The patient tested negative for any deleterious mutations in all 28 genes that were tested. This testing included the genes responsible for Jean-Baptiste syndrome, HBOC, as well as most other common hereditary cancer syndromes. 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 17 Morbid obesity with BMI of 40.0-44.9, adult /11/2016 Resolved Problems Problem Noted Date Diagnosed Date Resolved Date Malignant neoplasm of lower- outer quadrant of left female breast 02/21/2016 08/04/2018 Cancer Staging:Clinical:Stage IA(T1c, N0, M0) - Unsigned Encounters Date Type Department Care Team Description 05/23/2024 External Device Data STL ABSTRACTION Provider, Abstract 05/17/2024 External Device Data STL ABSTRACTION Provider, Abstract from Last 3 Months Family History Medical History Relation Name Comments Cancer Brother 2 Testicular canc er Diabetes Brother 2 Cancer Brother 3 Testicular canc er Diabetes Brother 3 Heart Disease Brother 3 Other Brother 4 Accident Healthy Daughter Heart Disease Father Breast Cancer Maternal Grandmother Heart Disease Mother Hypertension Mother Cancer Paternal Aunt 1 unknown cancer 50 Cancer Paternal Aunt 2 unknown cancer 50s Cancer Paternal Aunt 3 unknown cancer 50s Breast Cancer Sister 2 Cancer Sister 2 Uterine cancer Cancer Sister 3 Thyroid cancer Other Sister 3 Breast Cancer Sister 4 Healthy Sister 5 Colon Cancer Sister 6 Colon cancer/ca rcinoid Healthy Son Relation Name Status Comments Brother 1 Alive Brother 2 Alive Brother 3 Brother 4 Daughter Alive Father Maternal Grandfather Maternal Grandmother Mother Paternal Aunt 1 Paternal Aunt 2 Paternal Aunt 3 Paternal Grandfather Paternal Grandmother Sister 1 Alive Sister 2 Alive Sister 3 Alive Sister 4 Alive Sister 5 Alive Sister 6 Son Alive Social History Tobacco Use Types Packs/Day Years Used Date Smoking Tobacco: Former Cigarettes Q uit: 02/21/1996 Smokeless Tobacco: Never Tobacco Cessation:Counseling Given: Not Answered Alcohol Use Standard Drinks/Week Comments Yes 0 (1 standard drink = 0.6 oz pur e alcohol) Comments No Sex and Gender Information Value Date Recorded Sex Assigned at Not on file Legal Sex Female 11:29 AM CDT Gender Identity Not on file Sexual Orientation Not on file Last Filed Vital Signs Vital Sign Reading Time Taken Comments Blood Pressure 131/62 06/10/2023 11:11 AM REGULATORY COORDINATOR Pulse 77 06/10/2023 11:11 AM REGULATORY COORDINATOR Temperature 36.4 C (97.6 F) 06/10/2023 11:11 AM REGULATORY COORDINATOR Respiratory Rate 14 06/10/2023 11:11 AM REGULATORY COORDINATOR Oxygen Saturation 94% 06/10/2023 11:11 AM REGULATORY COORDINATOR Inhaled Oxygen Concentration - - Weight 118.4 kg (261 lb) 06/10/2023 11:11 AM REGULATORY COORDINATOR Height 165.1 cm (5' 5 ) 11/18/2021 9:57 AM CDT Body Mass Index 43.43 11/18/2021 9:57 AM CDT Plan of Treatment Upcoming Encounters Date Type Department Care Team (Late st Contact Info) Description 06/13/2024 10:15 AM REGULATORY COORDINATOR Office Visit [facility] Oncology and Hematology [facility] [address] [place] [address] Vito Briceño MD [address] [place] [address] Health Maintenance Due Date Last Done Comments DTAP/TDAP/TD VACCINES (1 - Tdap) 1964 PNEUMOCOCCAL VACCINE 65+ YEARS (1 of 2 - PCV) 06/22/18 67 ZOSTER VACCINE (1 of 2) 1965 RSV VACCINE (60+ or ) (1 - 1-dose 75+ series) 2021 INFLUENZA VACCINE (#1) 2023 [place] Prev entative Visit/Annual Wellness Visit 04/26/2024 OSTEOPOROSIS SCREENING Completed 11/01/2020 Procedures Procedure Name Priority Date/Time Associated Diagnosis Comments XR DEXA BONE DENSITY AXIAL 1 OR MORE SITES Routine 11/01/2020 Osteoporosis, unspecified osteoporosis type, unspecified pathological fracture presence from Last 3 Months or Most Recently Relevant to Health Maintenance Results * XR DEXA BONE DENSITY AXIAL 1 OR MORE SITES (11/01/2020) Anatomical Region Laterality Modality Other Vito Briceño MD DIAGNOSTIC IMAGING ORDERABLES F inal Result from Last 3 Months or Most Recently Relevant to Health Maintenance Insurance Care Teams Mortgage Specialist Relationship Specialty Start Date End Date Emerson Stinson MD [address] [facility] [address] [place] [address] PCP - General Family Practice 08/04/18
--- OUTSIDE RECORDS SUMMARY | 2024-06-06 09:38 | XMS_ITS | Referral Summary ---
Author Organization [address] Address [address] [place] [address] Care Team Providers Care Per Diem Clerk Name Role Phone Emerson Stinson MD Primary Care Provider Encounters Date Type Department Care Team Description 03/20/2024 2:20 PM DIESEL TRAILER MECHANIC - 03/20/2024 11:59 PM DIESEL TRAILER MECHANIC Hospital Encounter [address] [address] Multinodular goiter Discharge Disposition: Discharge to home or self care 03/20/2024 2:15 PM DIESEL TRAILER MECHANIC Lab [facility] Outpatient Lab at [address] [address] Morbid obesity with BMI of 40.0-44.9, adult (HCC) (Primary Dx) 03/20/2024 2:00 PM DIESEL TRAILER MECHANIC Office Visit [facility] Diabetes and Endocrinology [address] [place] [address] Xena Zhang MD Multinodular goiter (Primary Dx) from Last 3 Months Allergies Active Allergy Reactions Criticality Noted Date Comments Zinc Rash Medium 10/25/2014 Medications anastrozole (ARIMIDEX) 1 mg tablet Take 1 tablet (1 mg total) by mouth daily 0 11/29/2018 Active spironolactone (ALDACTONE) 50 mg tablet Take 1 tablet (50 mg total) by mouth daily Active furosemide (LASIX) 40 mg tablet Take 1 tablet (40 mg total) by mouth daily Active POTASSIUM CHLORIDE ER 10 mEq CR capsule Take 1 capsule by mouth daily 0 11/28/2018 Active cholecalciferol (VITAMIN D-3) 1,000 unit (25 mcg) tablet Take 1 tablet (1,000 Units total) by mouth daily Active calcium carbonate (OS-SYED) 1,500 mg (600 mg of elemental calcium) tablet Take 600 mg by mouth 2 times daily Active omega-3 fatty acids-fish oil 300-1,000 mg capsule Take 1 capsule (1 g total) by mouth daily Active ascorbic acid (VITAMIN C) 500 mg tablet,chewable Take 1 tablet/chew tab (500 mg total) by mouth daily Active escitalopram (LEXAPRO) 10 mg tablet Take 1 tablet (10 mg total) by mouth daily Active denosumab (PROLIA) 60 mg/mL syringe Inject 1 mL (60 mg total) under the skin once Active benzonatate (TESSALON) 100 mg capsule TAKE 1 CAPSULE BY MOUTH THREE TIMES DAILY NEEDED FOR COUGH 02/17/2022 Active mirabegron ER (MYRBETRIQ) 25 mg tablet extended release 24 hr Take 1 tablet (25 mg total) by mouth daily 03/06/2024 Active Active Problems Problem Noted Date Diagnosed Date Multinodular goiter 01/08/2019 Assessment & Plan (03/20/2024 2:53 PM DIESEL TRAILER MECHANIC): Performed a follow-up thyroid ultrasound office today Overall stable thyroid nodules Over past 6 years patient has been controlled radiological monitoring for her thyroid labs overall no significant changes No compressive symptoms Check TSH today Patient is released from our care back to PCP no further radiological monitoring needed at this time in regards to her thyroid Assessment & Plan (03/08/2023 3:50 PM DIESEL TRAILER MECHANIC): Performed a follow up thyroid ultrasound in office today Noted bilateral thyroid nodules overall stable No compressive symptoms Follow up in one year Assessment & Plan (04/06/2022 2:27 PM DIESEL TRAILER MECHANIC): Performed a follow up thyroid ultrasound in office today Noted bilateral thyroid nodules very slightly increased in size when compared to 12/2020 Still small to do FNA No compressive symptoms Follow up in one year Assessment & Plan (01/13/2021 9:55 AM CDT): Performed repeat thyroid ultrasound to follow-up on thyroid nodules Noted bilateral thyroid nodules mostly subcentimeter Continue to monitor no need for FNA biopsy at this time No compressive symptoms Repeat TSH will try to obtain pt last thyroid labs results from PCP Assessment & Plan (01/23/2020 12:50 PM CDT): Performed repeat thyroid ultrasound to follow-up on thyroid nodules Noted bilateral thyroid nodules mostly subcentimeter Continue to monitor no need for FNA biopsy at this time No compressive symptoms Repeat TSH Assessment & Plan (03/28/2019 5:32 AM DIESEL TRAILER MECHANIC): Sub centimeter thyroid nodules Plan to recheck thyroid Ultrasound in one year Malignant neoplasm of left b reast in female, estrogen receptor positive 08/04/2018 Family history of breast cancer 08/19/2017 Personal history of malignant neoplasm of uterus 08/19/2017 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 17 Morbid obesity with BMI of 40.0-44.9, adult 11/2016 Colon cancer (CMS/HCC) 09/07/2014 Resolved Problems Problem Noted Date Diagnosed Date Resolved Date Abnormal thyroid function test 01/08/2019 04/06/2022 Assessment & Plan (01/13/2021 9:56 AM CDT): Will try to repeat thyroid function test and also obtain thyroid labs from PCP that were done in SeptemberOctober 2020 Assessment & Plan (01/23/2020 12:50 PM CDT): After stopping biotin supplements pt TFT were back to normal range 01/16/2019 Plan to recheck TSH today, if WNL, advised to follow up in one year Assessment & Plan (03/28/2019 5:32 AM DIESEL TRAILER MECHANIC): After stopping biotin supplements pt TFT were back to normal range 01/16/2019 Plan to recheck TSH today, if WNL, advised to follow up in one year Assessment & Plan (01/08/2019 8:13 PM CDT): Reviewed pt recent TFT Low TSH with normal range Free T 4 DD: Toxic goiter vs early Graves disease vs thyroiditis vs drug effect Pt does not have any classic hyperthyroid symptoms performed a thyroid ultrasound in office today noted bilateral sub centimeter nodules Pt also on high dose biotin over the counter , possible effect on thyroid labs Advised to stop Biotin and recheck labs in few weeks , if TSH remains low, plan to obtain Nm thyroid uptake and scan Further plans based on repeat labs Social History Tobacco Use Types Packs/Day Years Used Date Smoking Tobacco: Former Smokeless Tobacco: Never Tobacco Cessation:Counseling Given: Not Answered Alcohol Use Standard Drinks/Week Comments Not Currently 0 (1 standard drink = 0.6 oz pur e alcohol) PHQ-2 Answer Date Recorded PHQ-2 Total Score (If total score is 3 or more points, staff should administer the PHQ-9) 0 01/13/2021 Comments Unknown Sex and Gender Information Value Date Recorded Sex Assigned at Not on file Legal Sex Female 4:06 AM DIESEL TRAILER MECHANIC Gender Identity Not on file Sexual Orientation Not on file Last Filed Vital Signs Vital Sign Reading Time Taken Comments Blood Pressure 122/80 03/20/2024 1:53 PM DIESEL TRAILER MECHANIC Pulse 80 03/08/2023 2:17 PM DIESEL TRAILER MECHANIC Temperature - - Respiratory Rate 17 03/20/2024 1:53 PM DIESEL TRAILER MECHANIC Oxygen Saturation - - Inhaled Oxygen Concentration - - Weight 119.7 kg (264 lb) 03/20/2024 1:53 PM DIESEL TRAILER MECHANIC Height 165.1 cm (5' 5 ) 03/20/2024 1:53 PM DIESEL TRAILER MECHANIC Body Mass Index 43.93 03/20/2024 1:53 PM DIESEL TRAILER MECHANIC Plan of Treatment Not on file Procedures Procedure Name Priority Date/Time Associated Diagnosis Comments US THYROID Schedule Routine, Read Routine (OP Routine) 03/20/2024 2:50 PM DIESEL TRAILER MECHANIC Multinodular goiter THYROID FUNCTION CASCADE Routine 03/20/2024 2:20 PM DIESEL TRAILER MECHANIC Multinodular goiter from Last 3 Months Results * US Thyroid - Clinic Performed (03/20/2024 2:50 PM DIESEL TRAILER MECHANIC) Anatomical Region Laterality Modality Head and Neck N/A Ultrasound Narrative 03/20/2024 2:50 PM DIESEL TRAILER MECHANIC THYROID ULTRASOUND DATE: 03/20/2024 INDICATION: Multinodular goiter PROCEDURE: Using physician performed real time ultrasonography limited to the thyroid gland, longitudinal and transverse images were obtained of both lobes and isthmus. COMPARISON STUDY: 03/08/2023 04/06/2022 01/13/2021 01/15/2020 01/02/2019 FINDINGS The right thyroid lobe measures approx 3.26 X 1.71 X 1.74 cm. The left thyroid lobe measures approx 3.33 X 1.95 X 1.55 cm. Isthmus measures 0.4 cm Within the right mid lobe there is a solid, hypoechoic nodule that measures 0.82 X 0.51 X 0.59 cm , grade 2-3 vascularity. No calcifications noted. Within the left mid lobe there is a solid, hypoechoic nodule that measures 1.27 X 0.76 X 1.36 cm , grade 3 vascularity. No calcifications noted. Within the left inferior lobe there is a coarse calcification. IMPRESSION: Overall stable Multinodular goiter us Xena Lin MD IMG US PROCEDURES F inal Result * Thyroid Function [place] (03/20/2024 2:20 PM DIESEL TRAILER MECHANIC) TSH 0.53 0.30 - 4.20 mcIUnit/mL Blood 03/20/2024 2:20 PM DIESEL TRAILER MECHANIC 03/20/2024 9:07 PM DIESEL TRAILER MECHANIC us Xena Lin MD LAB BLOOD ORDERABLE S Final Result Performing Organization Address City/State/[facility] Co de Phone Number DELANO [phone] [address] [place] [address] from Last 3 Months Insurance MEDICARE [facility] MEDICARE Address: [phone] [place] [address] [employer] MEDICARE Care Teams Per Diem Clerk Relationship Specialty Start Date End Date Emerson Stinson MD [address] [facility] [address] [place], [place] [id number] PCP - General Family Medicine 12/23/18
--- OUTSIDE RECORDS SUMMARY | 2024-06-06 09:38 | XMS_ITS | Clinical Summary ---
Author Organization [facility] [address] [place] [address] [place] [address] Care Team Providers Care Technical Advisor Name Role Phone Emerson Stinson MD Primary Care Provider Allergies Active Allergy Reactions Criticality Noted Date [...] 01/08/2019 Assessment & Plan (03/20/2024 2:53 PM WEB CONTENT EDITOR): Performed a follow-up thyroid ultrasound office today Overall stable thyroid nodules Over past 6 years patient has been controlled radiological monitoring for her thyroid labs overall no significant changes No compressive symptoms Check TSH today Patient is released from our care back to PCP no further radiological monitoring needed at this time in regards to her thyroid Assessment & Plan (03/08/2023 3:50 PM WEB CONTENT EDITOR): Performed a follow up thyroid ultrasound in office today Noted bilateral thyroid nodules overall stable No compressive symptoms Follow up in one year Assessment & Plan (04/06/2022 2:27 PM WEB CONTENT EDITOR): Performed a follow up thyroid ultrasound in [...] TSH Assessment & Plan (03/28/2019 5:32 AM WEB CONTENT EDITOR): Sub centimeter thyroid nodules Plan to recheck [...] year Assessment & Plan (03/28/2019 5:32 AM WEB CONTENT EDITOR): After stopping biotin supplements pt TFT were [...] scan Further plans based on repeat labs Encounters Date Type Department Care Team Description 03/20/2024 2:20 PM WEB CONTENT EDITOR - 03/20/2024 11:59 PM WEB CONTENT EDITOR Hospital Encounter [address] [address] Multinodular goiter Discharge Disposition: Discharge to home or self care 03/20/2024 2:15 PM WEB CONTENT EDITOR Lab [facility] Outpatient Lab at [address] [address] Morbid obesity with BMI of 40.0-44.9, adult (HCC) (Primary Dx) 03/20/2024 2:00 PM WEB CONTENT EDITOR Office Visit [facility] Diabetes and Endocrinology [address] [place] [address] Xena Zhang MD Multinodular goiter (Primary Dx) from Last 3 Months Medical History Medical History Date Comments Colon cancer (CMS/HCC) (HCC) Breast cancer (HCC) Uterine cancer (CMS/HCC) (HCC) Cataracts, bilateral Hypothyroidism Family History Medical History Relation Name Comments Diabetes Brother Hypertension Father Diabetes Sister Liver cancer Sister Parkinsonism Sister Thyroid cancer Sister Relation Name Status Comments Brother Father Sister Social History Tobacco Use Types Packs/Day Years [...] on file Legal Sex Female 4:06 AM WEB CONTENT EDITOR Gender Identity Not on file Sexual Orientation Not on file Obstetrics History Last Filed Vital Signs Vital Sign Reading Time Taken Comments Blood Pressure 122/80 03/20/2024 1:53 PM WEB CONTENT EDITOR Pulse 80 03/08/2023 2:17 PM WEB CONTENT EDITOR Temperature - - Respiratory Rate 17 03/20/2024 1:53 PM WEB CONTENT EDITOR Oxygen Saturation - - Inhaled Oxygen Concentration - - Weight 119.7 kg (264 lb) 03/20/2024 1:53 PM WEB CONTENT EDITOR Height 165.1 cm (5' 5 ) 03/20/2024 1:53 PM WEB CONTENT EDITOR Body Mass Index 43.93 03/20/2024 1:53 PM WEB CONTENT EDITOR Plan of Treatment Health Maintenance Due Date Last Done Comments Fall Risk Assessment 1945 Hepatitis C Screening 1945 Hepatitis B Screening 1964 Well Visit 65+ 2011 Depression Screening 01/13/2022 01/13/2021, 01/15/2020, 03/27/2019 Osteoporosis Screening-Bone Density Scan 11/01/2022 11/01/2020, 11/01/2020 Influenza Vaccine (#1) 2023 9, 01/22/2018, 01/16/2018, Additional history exists DTaP/Tdap/Td Vaccine (2 - Td or Tdap) 08/04/2028 08/04/2018 Pneumococcal vaccine 65+ Completed 07/04/2015, 12/26 Zoster Vaccine Completed 10/04/2018, 07/25, 10/25/2014 Procedures Procedure Name Priority Date/Time Associated Diagnosis Comments US THYROID Schedule Routine, Read Routine (OP Routine) 03/20/2024 2:50 PM WEB CONTENT EDITOR Multinodular goiter THYROID FUNCTION CASCADE Routine 03/20/2024 2:20 PM WEB CONTENT EDITOR Multinodular goiter from Last 3 Months Results * US Thyroid - Clinic Performed (03/20/2024 2:50 PM WEB CONTENT EDITOR) Anatomical Region Laterality Modality Head and Neck N/A Ultrasound Narrative 03/20/2024 2:50 PM WEB CONTENT EDITOR THYROID ULTRASOUND DATE: 03/20/2024 INDICATION: Multinodular goiter [...] calcification. IMPRESSION: Overall stable Multinodular goiter us Supraja Riley Lin MD IMG US PROCEDURES F inal Result * Thyroid Function [place] (03/20/2024 2:20 PM WEB CONTENT EDITOR) TSH 0.53 0.30 - 4.20 mcIUnit/mL Blood 03/20/2024 2:20 PM WEB CONTENT EDITOR 03/20/2024 9:07 PM WEB CONTENT EDITOR us Xena Lin MD LAB [place]LOOD [place] [address] [address] [place] [address] from Last 3 Months Insurance MEDICARE [facility] MED[facility] Address: [facility] [address] [place] [address] AET MEDICARE BY [facility] MEDIC[facility] Address: [address] [place] [address] Care Teams Technical Advisor Relationship Specialty Start Date End Date Emerson tSinson MD [address] [place] [address] PCP - General Family Medicine 12/23/18
--- OUTSIDE RECORDS SUMMARY | 2024-06-06 09:38 | XMS_ITS | Encounter Summary ---
Author Organization [facility] Address [address] [place] [address] Care Team Providers Care Show Host Name Role Phone Emerson Stinson MD Primary Care Provider [phone] Encounter Details Date Type Department Care Team (Late Contact Info) Description 07/06/2016 Chart Note [facility] Radiation Therapy [address] [place] [address] [place] [address] [place] [address] Social History Tobacco Use Types Packs/Day Years Used Date Smoking Tobacco: Former Cigarettes Q uit: 02/21/1996 Alcohol Use Standard Drinks/Week Comments Yes 0 (1 standard drink = 0.6 oz pur e alcohol) Comments No Sex and Gender Information Value Date Recorded Sex Assigned at Not on file Legal Sex Female 11:29 AM CDT Gender Identity Not on file Sexual Orientation Not on file documented as of this encounter Plan of Treatment Upcoming Encounters Date Type Department Care Team (Late st Contact Info) Description 06/13/2024 10:15 AM ASSISTANT FOOD SERVICE MANAGER Office Visit [facility] Oncology and Hematology - [place] [facility] [address] [place] [address] Vito Briceño MD [address] [facility] [address] [place] [address] documented as of this encounter Visit Diagnoses Not on filedocumented in this encounter Care Teams Show Host Relationship Specialty Start Date End Date Emerson Stinson MD [address] [facility] [address] [place] [address] PCP - General Family Practice 08/04/18 documented as of this encounter
[2024-06-06 10:09] LABS: Basophils Percent Auto 0.4 % (0.2-1.2); Eosinophils Absolute Auto 0.3 K/mm3 (0-0.3); Eosinophils Percent Auto 4.4 % (0-4.4); Hematocrit 41.5 % (37.0-47.0); Hemoglobin 13.6 g/dL (12.0-15.0); Immature Granulocyte Absolute 0.05 K/mm3 (0.00-0.031); Immature Granulocyte Percent A 0.7 % (0-0.5); Lymphocytes Absolute Auto 1.64 K/mm3 (0.9-3.2); Lymphocytes Percent Auto 21.7 % (18.3-44.2); Mean Corpuscular HGB Conc 32.8 g/dl (32-36); Mean Corpuscular Hemoglobin 30.3 pg (26-34); Mean Corpuscular Volume 92.4 fl (80-100); Monocytes Absolute Auto 0.7 K/mm3 (0.1-0.6); Monocytes Percent Auto 9.8 % (2.6-8.5); Neutrophils Absolute Auto 4.8 K/mm3 (1.3-6.7); Platelet Count Result 241 k/mm3 (150-375); Red Blood Count 4.49 M/mm3 (4.2-5.4); Red Cell Distribution Width 13.2 % (11.5-14.5); White Blood Count 7.6 K/mm3 (4.5-10.0)
[2024-06-06 10:51] LABS: Hemoglobin A1C 5.8 % (<5.7)
[2024-06-06 11:59] LABS: Alanine Aminotransferase 18 U/L (6-35); Alkaline Phosphatase 105 U/L (38-126); Anion Gap 8 mmol/L (4-12); Aspartate Amino Transferase 25 U/L (14-36); Bilirubin,Total 0.4 mg/dL (0.2-1.3); Blood Urea Nitrogen 22 mg/dL (7-17); Calcium 9.3 mg/dL (8.4-10.2); Carbon Dioxide 29 mmol/L (22-30); Chloride 102 mmol/L (98-107); Estimated Glomerular Filt Rate > 60; Glucose 89 mg/dL (65-110); Potassium 4.1 mmol/L (3.4-5.0); Sodium 139 mmol/L (137-145)
[2024-06-07 06:53] LABS: CA 15-3 12 U/mL (<32)
== END 2024-06-06 08:57 | disposition home or self-care (01) ==
LOC: ANHLAB 08:59
PROVIDERS: PCP Family Medicine; Visit Provider Internal Medicine Hematology & Oncology
DX: R73.01 Impaired fasting glucose (principal); I10 Essential (primary) hypertension; C50.912 Malignant neoplasm of unspecified site of left female breast; Z17.0 Estrogen receptor positive status [ER+]
CPT/HCPCS: 36415; 80053; 83036; 85025; 86300

== ENCOUNTER 2024-06-06 09:25 | Outpatient (CLI) | payer MEDICARE, SELFPAY ==
--- NOTE | ~2024-06-06 | MM_ITS ---
EXAMINATION: MM screening sofi BI w marlo HISTORY: Screening TECHNIQUE: Craniocaudal and mediolateral oblique 3-D tomosynthesis images were obtained and synthetic 2-D images were generated. CAD analysis was submitted and interpreted. COMPARISON: Comparison to multiple prior studies sequentially, with oldest reviewed study dated 03/26. BREAST PARENCHYMAL COMPOSITION: Not dense: There are scattered areas of fibroglandular density. FINDINGS: Subareolar asymmetry of the right breast is unchanged from prior examinations allowing for technique. There is no evidence of new suspicious mass, calcification, or architectural distortion to suggest malignancy in either breast. There has been no suspicious interval change. IMPRESSION: 1. No mammographic evidence of malignancy. 2. Recommend routine screening mammography in one year. BI-RADS Category 2: Benign finding(s). Reviewed, dictated and finalized at location B. OR PROPERTY ACCOUNTANT
--- OUTSIDE RECORDS SUMMARY | 2024-06-06 10:18 | XMS_ITS | Continuity of Care Document ---
Author Organization [facility] Address [address] [place] [address] [address] [place] [address] Phone Care Team Providers Care Library Media Technician Name Role Phone Foreman OD, Kishan Unavailable Unavailable Procedures Procedure Date Contact Lens/es Other Type [facility] Medical Eye Exam & Treatment Refraction CL Replacement - Vistakon Disp W/BW Soft ActX CL Replacement - Vistakon Disp W/BW Soft [facility] Oncology Medical Office/outpatient Visit, Est Eye Exam Established Pt Eye Exam & Treatment Refraction Office/outpatient Visit, Est CL Replacement - Vistakon Disp W/BW Soft [employer] Eye Exam & Treatment Refraction CL Replacement - Vistakon Disp W/BW Soft [employer] Medical Office/outpatient Visit, Est Office/outpatient Visit, Est CL Replacement - Vistakon Disp W/BW Soft Sales Tax Advance Directives Directive Yes / No Effective Date File Name No Information Encounters Encounter Description Practice Location Reason(s) For Visit Diagnoses Date Provider Providers Copied on Encounter [facility], [address] [place] [address] [address], [place], [place], [id number], [place] tel:[phone] [facility] No Information Dec-0 2-200 9 Foreman OD Kishan. [address] , [address], [place], [address], [place]. tel:[phone] [facility], [address] [place] [address] [address], [place], [place], [id number], [place] tel:[phone] [facility] No Information Nov-1 8-200 9 Foreman OD Kishan. [address] , [address], [place], [address], [place]. tel:[phone] [facility], [address] [place] [address] [address], [place], [place], [id number], [place] tel:[phone] [facility] [place] No Information Aug-1 8-200 9 Foreman OD Kishan. [address] , [address], [place], [place], [facility], [place]. tel:[phone] Office/outpat ient Visit, Est [facility], [address] [place] [address] [address], [place], [place], [id number], [place] tel:[phone] [facility] [place] No Information Dec-3 1-200 8 Foreman OD Kishan. [address] , [address], [place], [place], [facility], [place]. tel:[phone] [facility], [address] [place] [address] [address], [place], [place], [id number], [place] tel:[phone] [facility] [place] No Information Dec-2 3-200 8 Krishnasamy Raji. [facility] [address], [place], [place], [facility], [place]. tel:[phone] [facility], [address] [place] [address] [address], [place], [place], [id number], [place] tel:[phone] [facility] No Information Nov-1 2-200 8 Foreman OD Kishan. [address] , [address], [place], [place], [facility], . [phone] Office/outpat ient Visit, Est [facility], [address] [place] [address] [address], [place], [place], [id number], [place] tel:[phone] [facility] No Information Nov-0 6-200 8 Baker Katarzyna. [address] , [address], [place], [place], [facility], . [phone] [facility], [address] [place] [address] [address], [place], [place], [id number], [place] tel:[phone] [facility] [place] No Information 1 5-200 8 Foreman OD Kishan. [address] , [address], [place], [place], [facility], . tel:[phone] [facility], [address] [place] [address] [address], [place], [place], [id number], [place] tel:[phone] [facility] No Information Feb-2 9-200 7 Baker Katarzyna. [facility] [address] , [address], [place], [place], [facility], [place]. tel:[phone] [facility], [address] [place] [address] [address], [place], [place], [id number], [place] tel:[phone] [facility] No Information Nov-0 3-200 7 Foreman OD Kishan. [address] , [address], [place], [place], [facility], [place]. [phone] Office/outpat ient Visit, Est [facility], [address] [place] [address] [address], [place], [place], [id number], [place] [phone] [facility] No Information Oct-2 4-200 7 Dakota Mccain. [address], [place], [place], [id number], [place]. tel:[phone] Office/outpat ient Visit, Est [facility], [address], [place], [place], [id number], [place] tel:[phone] [facility] No Information 9-200 7 Wankum Adán. [address], [address], [place], [place], [id number], [place]. tel:[phone] [facility], [address], [place], [place], [id number], [place] tel:[phone] [facility] No Information 0-200 7 Foreman OD Kishan. [address] [facility] [address], [place], [address], [place]. tel:[phone] Family History Family Member Type Diagnosis Age At Onset No Information Payers Payer name Insurance type Covered green party ID Eleanor robbins(s) [employer] Plan [id number] Social History Type Description Quantity Date [...]
--- OUTSIDE RECORDS SUMMARY | 2024-06-06 10:18 | XMS_ITS | Clinical Summary ---
Author Organization [facility] Address [address] [place] [address] Care Team Providers Care Precipitator Name Role Phone Emerson Stinson MD Primary Care Provider [phone] Allergies Active Allergy Reactions Criticality Noted Date Comments Zinc Rash Medium 10/25/2014 Medications aspirin (ECOTRIN EC) 81 mg Tablet, Delayed Release (E.C.) Take 81 mg by mouth daily. Active fluticasone (FLONASE) 50 mcg/spray [place], Suspension Administer 2 Sprays in each nostril [...] Overview (09/07/2017): NEGATIVE. The patient underwent the [employer] my risk genetic testing for hereditary cancer [...] Comments Blood Pressure 131/62 06/10/2023 11:11 AM TECHNOLOGY SALES REPRESENTATIVE Pulse 77 06/10/2023 11:11 AM TECHNOLOGY SALES REPRESENTATIVE Temperature 36.4 C (97.6 F) 06/10/2023 11:11 AM TECHNOLOGY SALES REPRESENTATIVE Respiratory Rate 14 06/10/2023 11:11 AM TECHNOLOGY SALES REPRESENTATIVE Oxygen Saturation 94% 06/10/2023 11:11 AM TECHNOLOGY SALES REPRESENTATIVE Inhaled Oxygen Concentration - - Weight 118.4 kg (261 lb) 06/10/2023 11:11 AM TECHNOLOGY SALES REPRESENTATIVE Height 165.1 cm (5' 5 ) 11/18/2021 9:57 AM CDT Body Mass Index 43.43 11/18/2021 9:57 AM CDT Plan of Treatment Upcoming Encounters Date Type Department Care Team (Late st Contact Info) Description 06/13/2024 10:15 AM TECHNOLOGY SALES REPRESENTATIVE Office Visit [facility] Oncology and Hematology [facility] [address] [facility] [address] [place] [address] Vito Briceño MD [address] [facility] [address] [place] [address] Health Maintenance Due Date Last Done Comments DTAP/TDAP/TD VACCINES (1 - Tdap) 1964 PNEUMOCOCCAL VACCINE 65+ YEARS (1 of 2 - PCV) 06/22/18 66 ZOSTER VACCINE (1 of 2) 1965 RSV VACCINE (60+ or ) (1 - 1-dose 75+ series) 2021 INFLUENZA VACCINE (#1) 2023 Medicare Advantage ([place]) Prev entative Visit/Annual Wellness Visit 04/26/2024 OSTEOPOROSIS [...] Relevant to Health Maintenance Insurance Care Teams Precipitator Relationship Specialty Start Date End Date Emerson Stinson MD [address] [place] [address] PCP - General Family Practice 08/04/18
--- OUTSIDE RECORDS SUMMARY | 2024-06-06 10:18 | XMS_ITS | Encounter Summary ---
Author Organization [facility] Address [address] [place] [address] Care Team Providers Care Newspaper Stuffer Name Role Phone Emerson Stinson MD Primary Care Provider [phone] Encounter Details Date Type Department Care Team (Late Contact Info) Description 07/06/2016 Chart Note [facility] Radiation Therapy [address] [place] [address] [place] [address] [place] [address] Social History Tobacco Use Types [...] st Contact Info) Description 06/13/2024 10:15 AM DIAGNOSTIC CARDIAC SONOGRAPHER Office Visit [facility] Oncology and Hematology - [place] [address] [facility] [address] [place] [address] Vito Briceño MD [address] [facility] [address] [place] [address] documented as of this encounter Visit Diagnoses Not on filedocumented in this encounter Care Teams Newspaper Stuffer Relationship Specialty Start Date End Date Emerson Stinson MD [address] [facility] [address] [place] [address] PCP - General Family Practice 08/04/18 documented as of this encounter
--- OUTSIDE RECORDS SUMMARY | 2024-06-06 10:18 | XMS_ITS | Clinical Summary ---
Author Organization [facility] [address] [place] [address] [place] [address] Care Team Providers Care Skiver Box Toe Name Role Phone Emerson Stinson MD Primary [...] 01/08/2019 Assessment & Plan (03/20/2024 2:53 PM JAVA ORACLE DEVELOPER): Performed a follow-up thyroid ultrasound office today Overall stable thyroid nodules Over past 6 years patient has been controlled radiological monitoring for her thyroid labs overall no significant changes No compressive symptoms Check TSH today Patient is released from our care back to PCP no further radiological monitoring needed at this time in regards to her thyroid Assessment & Plan (03/08/2023 3:50 PM JAVA ORACLE DEVELOPER): Performed a follow up thyroid ultrasound in office today Noted bilateral thyroid nodules overall stable No compressive symptoms Follow up in one year Assessment & Plan (04/06/2022 2:27 PM JAVA ORACLE DEVELOPER): Performed a follow up thyroid ultrasound in [...] TSH Assessment & Plan (03/28/2019 5:32 AM JAVA ORACLE DEVELOPER): Sub centimeter thyroid nodules Plan to recheck [...] year Assessment & Plan (03/28/2019 5:32 AM JAVA ORACLE DEVELOPER): After stopping biotin supplements pt TFT were [...] Department Care Team Description 03/20/2024 2:20 PM JAVA ORACLE DEVELOPER - 03/20/2024 11:59 PM JAVA ORACLE DEVELOPER Hospital Encounter [address] [address] Multinodular goiter Discharge Disposition: Discharge to home or self care 03/20/2024 2:15 PM JAVA ORACLE DEVELOPER Lab [facility] Outpatient Lab at [address] [address] Morbid obesity with BMI of 40.0-44.9, adult (HCC) (Primary Dx) 03/20/2024 2:00 PM JAVA ORACLE DEVELOPER Office Visit [facility] Diabetes and Endocrinology [address] [place] [address] Xena Zhang MD Multinodular goiter (Primary [...] on file Legal Sex Female 4:06 AM JAVA ORACLE DEVELOPER Gender Identity Not on file Sexual Orientation Not on file Obstetrics History Last Filed Vital Signs Vital Sign Reading Time Taken Comments Blood Pressure 122/80 03/20/2024 1:53 PM JAVA ORACLE DEVELOPER Pulse 80 03/08/2023 2:17 PM JAVA ORACLE DEVELOPER Temperature - - Respiratory Rate 17 03/20/2024 1:53 PM JAVA ORACLE DEVELOPER Oxygen Saturation - - Inhaled Oxygen Concentration - - Weight 119.7 kg (264 lb) 03/20/2024 1:53 PM JAVA ORACLE DEVELOPER Height 165.1 cm (5' 5 ) 03/20/2024 1:53 PM JAVA ORACLE DEVELOPER Body Mass Index 43.93 03/20/2024 1:53 PM JAVA ORACLE DEVELOPER Plan of Treatment Health Maintenance Due Date [...] Read Routine (OP Routine) 03/20/2024 2:50 PM JAVA ORACLE DEVELOPER Multinodular goiter THYROID FUNCTION CASCADE Routine 03/20/2024 2:20 PM JAVA ORACLE DEVELOPER Multinodular goiter from Last 3 Months Results * US Thyroid - Clinic Performed (03/20/2024 2:50 PM JAVA ORACLE DEVELOPER) Anatomical Region Laterality Modality Head and Neck N/A Ultrasound Narrative 03/20/2024 2:50 PM JAVA ORACLE DEVELOPER THYROID ULTRASOUND DATE: 03/20/2024 INDICATION: Multinodular goiter [...] PROCEDURES F inal Result * Thyroid Function [place] (03/20/2024 2:20 PM JAVA ORACLE DEVELOPER) TSH 0.53 0.30 - 4.20 mcIUnit/mL Blood 03/20/2024 2:20 PM JAVA ORACLE DEVELOPER 03/20/2024 9:07 PM JAVA ORACLE DEVELOPER us Xena Lin MD LAB [place]LOOD [place] [id number] [address] [place] [address] from Last 3 Months Insurance MEDICARE [employer]IONS [employer]ET MEDICARE [facility] MEDIC[facility] Address: [address] [place] [address] Care Teams Skiver Box Toe Relationship Specialty Start Date End Date Emerson Stinson MD [address] [place] [address] PCP - General Family Medicine 12/23/18
--- OUTSIDE RECORDS SUMMARY | 2024-06-06 10:18 | XMS_ITS | Referral Summary ---
Author Organization [address] Address [address] [place] [id number] Care Team Providers Care Senior Test Analyst Name Role Phone Emerson Stinson MD Primary Care Provider Encounters Date Type Department Care Team Description 03/20/2024 2:20 PM [employer] - 03/20/2024 11:59 PM [employer] Hospital Encounter [address] [address] Multinodular goiter Discharge Disposition: Discharge to home or self care 03/20/2024 2:15 PM [employer] Lab [facility] Outpatient Lab at [address] [id number] Morbid obesity with BMI of 40.0-44.9, adult (HCC) (Primary Dx) 03/20/2024 2:00 PM [employer] Office Visit [facility] [address] [place] [id number] Xena Zhang MD Multinodular goiter (Primary [...] 01/08/2019 Assessment & Plan (03/20/2024 2:53 PM [employer]): Performed a follow-up thyroid ultrasound office today Overall stable thyroid nodules Over past 6 years patient has been controlled radiological monitoring for her thyroid labs overall no significant changes No compressive symptoms Check TSH today Patient is released from our care back to PCP no further radiological monitoring needed at this time in regards to her thyroid Assessment & Plan (03/08/2023 3:50 PM [employer]): Performed a follow up thyroid ultrasound in office today Noted bilateral thyroid nodules overall stable No compressive symptoms Follow up in one year Assessment & Plan (04/06/2022 2:27 PM [employer]): Performed a follow up thyroid ultrasound in [...] TSH Assessment & Plan (03/28/2019 5:32 AM [employer]ER): Sub centimeter thyroid nodules Plan to recheck [...] year Assessment & Plan (03/28/2019 5:32 AM [employer]): After stopping biotin supplements pt TFT were [...] on file Legal Sex Female 4:06 AM [employer] Gender Identity Not on file Sexual Orientation Not on file Last Filed Vital Signs Vital Sign Reading Time Taken Comments Blood Pressure 122/80 03/20/2024 1:53 PM [employer] Pulse 80 03/08/2023 2:17 PM [employer] Temperature - - Respiratory Rate 17 03/20/2024 1:53 PM [employer] Oxygen Saturation - - Inhaled Oxygen Concentration - - Weight 119.7 kg (264 lb) 03/20/2024 1:53 PM [employer] Height 165.1 cm (5' 5 ) 03/20/2024 1:53 PM [employer] Body Mass Index 43.93 03/20/2024 1:53 PM [employer] Plan of Treatment Not on file Procedures Procedure Name Priority Date/Time Associated Diagnosis Comments US THYROID Schedule Routine, Read Routine (OP Routine) 03/20/2024 2:50 PM [employer] Multinodular goiter THYROID FUNCTION CASCADE Routine 03/20/2024 2:20 PM [employer] Multinodular goiter from Last 3 Months Results * US Thyroid - Clinic Performed (03/20/2024 2:50 PM [employer]) Anatomical Region Laterality Modality Head and Neck N/A Ultrasound Narrative 03/20/2024 2:50 PM [employer] THYROID ULTRASOUND DATE: 03/20/2024 INDICATION: Multinodular goiter [...] PROCEDURES F inal Result * Thyroid Function [place] (03/20/2024 2:20 PM [employer]) TSH 0.53 0.30 - 4.20 mcIUnit/mL Blood 03/20/2024 2:20 PM [employer] 03/20/2024 9:07 PM [employer] us Xena Lin MD LAB BLOOD ORDERABLE S Final Result Performing Organization Address City/State/[facility] Co de Phone Number [facility] [address] [place] [address] from Last 3 Months Insurance MEDICARE [facility] MEDICARE Address: [id number] [place] [address] [employer] MED[employer]ARE Care Teams Senior Test Analyst Relationship Specialty Start Date End Date Emerson Stinson MD [address] [facility] [address] [place], [place] [id number] PCP - General Family Medicine 12/23/18
== END 2024-06-06 09:26 | disposition home or self-care (01) ==
LOC: ANHIMG 09:27
PROVIDERS: PCP Family Medicine; Visit Provider Internal Medicine Hematology & Oncology
DX: Z12.31 Encounter for screening mammogram for malignant neoplasm of breast (principal)
CPT/HCPCS: 77063; 77067